=== PATIENT | male | born 1995 | race Caucasian/White ===

== ENCOUNTER 2022-03-16 11:30 | Emergency (ER) | payer OTHER, SELFPAY ==
--- NOTE | 2022-03-16 12:47 | ED_ITS ---
HPI - Syncope General Chief Complaint: Syncope <JAMES Raygoza - Last Filed: 03/16/22 12:53> Stated Complaint: Syncope 03/13 <JAMES Raygoza - Last Filed: 03/16/22 12:53> Time Seen by Provider: 03/16/22 14:04 <JAMES Raygoza - Last Filed: 03/16/22 12:53> Source: patient and family <Lily Meeks NP - Last Filed: 03/16/22 15:06> Mode of arrival: ambulatory <Lily Meeks NP - Last Filed: 03/16/22 15:06> Limitations: no limitations <Lily Meeks NP - Last Filed: 03/16/22 15:06> History of Present Illness HPI narrative: 26-year-old male with no significant past medical history presents to the emergency department after having a witnessed syncopal episode 03/13/22 after using marijuana and alcohol. Patient states prior to losing consciousness, it he felt warm and sweaty, nauseous, with cloudy and starry vision and the feeling of his vision closing in. His girlfriend states he hit the side of his head when he passed out. She states he lost consciousness for less than 30 seconds, and opened his eyes as soon as he hit the floor. She reports that he appeared confused for several minutes afterwards. Patient states he had a similar episode in November, while on vacation in [place], however; his girlfriend states h e was unconscious for 1-2 minutes and woke with severe confusion that lasted minutes. He states he has a history of pericardial inflammation due to ' increased wbc's the attack my heart when sick'. He denies any similar symptoms since. He denies any recent illness, known sick contacts, fever, chills, nausea, diarrhea, headaches, or vision changes. <Lily Meeks NP - Last Filed: 03/16/22 15:06> MD complaint: loss of consciousness (03/13/22) <Lily Meeks NP - Last Filed: 03/16/22 15:06> Onset (ago): day(s) (3 days ago) <Lily Meeks NP - Last Filed: 03/16/22 15:06> Prodromal symptoms: vision changes, diaphoresis and nausea/vomiting <Lily Meeks NP - Last Filed: 03/16/22 15:06> Witnessed: Yes - by Bystander <Lily Meeks NP - Last Filed: 03/16/22 15:06> Context: standing up <Lily Meeks DEVELOPMENT TECHNICAL LEAD - Last Filed: 03/16/22 15:06> Injuries sustained associated with event: none <Lily Meeks DEVELOPMENT TECHNICAL LEAD - Last Filed: 03/16/22 15:06> Current symptoms: none <Lily Meeks NP - Last Filed: 03/16/22 15:06> Treatments prior to arrival: none <Lily Mekes NP - Last Filed: 03/16/22 15:06> Related Data Allergies/Adverse Reactions: Allergies Allergy/AdvReac Type Severity Reaction Status Date / Time No Known Allergies Allergy Verified 03/16/22 12:47 <JAMES Raygoza - Last Filed: 03/16/22 12:53> Review of Systems Review of Systems: Yes all other systems are reviewed and are negative <Lily Meeks NP - Last Filed: 03/16/22 15:06> Constitutional: Constitutional: Reports no additional constitutional complaints, Denies chills, Denies fever(s) and Denies headache(s) <Lily Meeks DEVELOPMENT TECHNICAL LEAD - Last Filed: 03/16/22 15:06> Eyes: Eyes: Reports no additional eye complaints and Denies change in vision <Lily Meeks DEVELOPMENT TECHNICAL LEAD - Last Filed: 03/16/22 15:06> ENT: Reports system reviewed and no additional complaints, except as documented, Reports Normal hearing present, Denies headache(s) and Denies disequilibrium <Lily Meeks DEVELOPMENT TECHNICAL LEAD - Last Filed: 03/16/22 15:06> Cardiovascular: Cardiovascular: Reports no additional cardiovascular complaints, Denies chest pain and Denies dyspnea <Lily Meeks DEVELOPMENT TECHNICAL LEAD - Last Filed: 03/16/22 15:06> Respiratory: Respiratory: Reports no additional respiratory complaints, Denies chest congestion, Denies cough, Denies pain on inspiration and Denies dyspnea <Lily Pluciennik, DEVELOPMENT TECHNICAL LEAD - Last Filed: 03/16/22 15:06> Gastrointestinal: Gastrointestinal: Reports no additional gastrointestinal complaints, Denies abdominal pain, Denies change in bowel habits, Denies constipation, Denies diarrhea, Denies nausea and Denies vomiting <Lily Pluciennik, DEVELOPMENT TECHNICAL LEAD - Last Filed: 03/16/22 15:06> Genitourinary: Genitourinary: Reports no additional male genitourinary complaints and Denies urinary incontinence <Lily Pluciennik, DEVELOPMENT TECHNICAL LEAD - Last Filed: 03/16/22 15:06> Musculoskeletal: Musculoskeletal: Reports no additional musculoskeletal complaints, Denies numbness and Denies tingling <Lily Pluciennik, DEVELOPMENT TECHNICAL LEAD - Last Filed: 03/16/22 15:06> Integumentary/Breasts: Skin/Breast: Reports system reviewed and no additional complaints, except as docu <Lily Pluciennik, DEVELOPMENT TECHNICAL LEAD - Last Filed: 03/16/22 15:06> Neurologic: Reports system reviewed and no additional complaints, except as documented, Reports Normal hearing present, Denies headache(s), Denies numbness, Denies tingling and Denies disequilibrium <Lily Pluciennik, DEVELOPMENT TECHNICAL LEAD - Last Filed: 03/16/22 15:06> Psychiatric: Psychiatric: Reports no additional psychiatric complaints, Reports anxiety (history of) and Denies depression <Lily Pluciennik, DEVELOPMENT TECHNICAL LEAD - Last Filed: 03/16/22 15:06> Endocrine: Endocrine: Reports no additional endocrine complaints, Denies polyphagia, Denies polydipsia and Denies polyuria <Lily Pluciennik, DEVELOPMENT TECHNICAL LEAD - Last Filed: 03/16/22 15:06> Hematologic/Lymphatic: Hematologic/Lymphatic: Reports no additional hematologic/lymphatic complaints, Denies easy bleeding, Denies easy bruising and Denies lymphadenopathy <Lily Pluciennik, DEVELOPMENT TECHNICAL LEAD - Last Filed: 03/16/22 15:06> Allergic/Immunologic: Allergic/Immunologic: Reports no additional allergic/immunologic complaints <Lily Pluciennik, DEVELOPMENT TECHNICAL LEAD - Last Filed: 03/16/22 15:06> PMFSH Past Medical History Attestation statement: The following information was validated with the patient. <Lily Pluciennik, DEVELOPMENT TECHNICAL LEAD - Last Filed: 03/16/22 15:06> Source: old records reviewed <Lily Meeks NP - Last Filed: 03/16/22 15:06> Social History Social History: Social History Advance Directives: No Advance Directives Information Provided: Yes <JAMES Raygoza - Last Filed: 03/16/22 12:53> Physical Exam Vital Signs: Vital Signs: Last Vital Signs Temp 97 F 03/16/22 12:48 Pulse 76 03/16/22 12:48 Resp 16 03/16/22 12:48 BP 142/91 H 03/16/22 12:48 Pulse Ox 100 03/16/22 12:48 O2 Del Method 03/16/22 12:48 BMI result Body Mass Index 34.2 <JAMES Raygoza - Last Filed: 03/16/22 12:53> Vital Signs: Last Vital Signs Temp 97 F 03/16/22 12:48 Pulse 76 03/16/22 12:48 Resp 16 03/16/22 12:48 BP 142/91 H 03/16/22 12:48 Pulse Ox 100 03/16/22 12:48 O2 Del Method 03/16/22 12:48 BMI result Body Mass Index 34.2 <Lily Meeks NP - Last Filed: 03/16/22 15:06> Const: General: cooperative, healthy appearing, comfortable, alert and awake <Lily Meeks NP - Last Filed: 03/16/22 15:06> Nutritional Appearance: well nourished <Lily Meeks NP - Last Filed: 03/16/22 15:06> Orientation/consciousness: patient oriented x3 <Lily Meeks NP - Last Filed: 03/16/22 15:06> Limitations: no limitations <Lily Meeks NP - Last Filed: 03/16/22 15:06> HEENT: Head: Yes normal to inspection, Yes normocephalic and Yes atraumatic <Lily Meeks NP - Last Filed: 03/16/22 15:06> Ears: hearing grossly normal bilaterally and external ears normal <Lily Meeks DEVELOPMENT TECHNICAL LEAD - Last Filed: 03/16/22 15:06> General nose exam: Normal external nose present and Normal nares present <Lily Meeks DEVELOPMENT TECHNICAL LEAD - Last Filed: 03/16/22 15:06> Face and sinus: Yes normal facial exam and Yes face symmetric <Lily Meeks DEVELOPMENT TECHNICAL LEAD - Last Filed: 03/16/22 15:06> Mouth: Normal oral and palatal mucosa present <Lily Meeks DEVELOPMENT TECHNICAL LEAD - Last Filed: 03/16/22 15:06> Eyes: General: appearance normal, both eyes and all related structures <Lily Meeks DEVELOPMENT TECHNICAL LEAD - Last Filed: 03/16/22 15:06> Visual Carvalho: normal visual carvalho by confrontation <Lily Meeks DEVELOPMENT TECHNICAL LEAD - Last Filed: 03/16/22 15:06> Alignment and Position: alignment normal <Lily Meeks DEVELOPMENT TECHNICAL LEAD - Last Filed: 03/16/22 15:06> Periorbital: periorbital findings normal <Lily Meeks DEVELOPMENT TECHNICAL LEAD - Last Filed: 03/16/22 15:06> Eyelids: Yes eyelids normal <Lily Meeks DEVELOPMENT TECHNICAL LEAD - Last Filed: 03/16/22 15:06> Conjunctivae: conjunctivae normal <Lily Meeks DEVELOPMENT TECHNICAL LEAD - Last Filed: 03/16/22 15:06> Sclerae: sclerae normal <Lily Meeks DEVELOPMENT TECHNICAL LEAD - Last Filed: 03/16/22 15:06> Pupils: Equal, round and reactive pupils present <Lily Meeks DEVELOPMENT TECHNICAL LEAD - Last Filed: 03/16/22 15:06> EOM: EOMs intact bilaterally <Lily Meeks DEVELOPMENT TECHNICAL LEAD - Last Filed: 03/16/22 15:06> Direct Ophthalmoscopy: normal light reflex <Lily Meeks DEVELOPMENT TECHNICAL LEAD - Last Filed: 03/16/22 15:06> Neck: Neck: Yes normal visual inspection and Yes full ROM <Lily Meeks DEVELOPMENT TECHNICAL LEAD - Last Filed: 03/16/22 15:06> Chest: Chest palpation & inspection: normal inspection of the chest <Lily Meeks, DEVELOPMENT TECHNICAL LEAD - Last Filed: 03/16/22 15:06> Resp: Effort & Inspection: normal respiratory effort and not labored <Lily Meeks, DEVELOPMENT TECHNICAL LEAD - Last Filed: 03/16/22 15:06> Auscultation: clear to auscultation bilaterally, no crackles, no rhonchi and no wheezes <Lily Meeks, DEVELOPMENT TECHNICAL LEAD - Last Filed: 03/16/22 15:06> Cardio: Rate: regular rate <Lily Meeks, DEVELOPMENT TECHNICAL LEAD - Last Filed: 03/16/22 15:06> Rhythm: regular rhythm <Lily Constantino, DEVELOPMENT TECHNICAL LEAD - Last Filed: 03/16/22 15:06> Heart sounds: S1 normal heart sound present and S2 normal heart sound present <Lily Meeks, DEVELOPMENT TECHNICAL LEAD - Last Filed: 03/16/22 15:06> Peripheral pulses: Peripheral pulses 2+ throughout <Lily Meeks, DEVELOPMENT TECHNICAL LEAD - Last Filed: 03/16/22 15:06> GI: Inspection: Yes normal to inspection <Lily Meeks, DEVELOPMENT TECHNICAL LEAD - Last Filed: 03/16/22 15:06> Palpation (GI): Soft to palpation and nontender <Lily Meeks, DEVELOPMENT TECHNICAL LEAD - Last Filed: 03/16/22 15:06> Auscultation: normal bowel sounds <Lily Meeks, DEVELOPMENT TECHNICAL LEAD - Last Filed: 03/16/22 15:06> : General: Yes no CVA tenderness <Lily Meeks, DEVELOPMENT TECHNICAL LEAD - Last Filed: 03/16/22 15:06> Back/Spine/Pelvis: Back: no CVA tenderness <Lily Meeks, DEVELOPMENT TECHNICAL LEAD - Last Filed: 03/16/22 15:06> Cervical Spine: cervical ROM normal <Lily Constantino, DEVELOPMENT TECHNICAL LEAD - Last Filed: 03/16/22 15:06> Thoracic/Lumbar Spine: thoraco-lumbar ROM normal <Lily Meeks, DEVELOPMENT TECHNICAL LEAD - Last Filed: 03/16/22 15:06> Skin: General skin exam: no rashes or lesions noted <Lily Pluciennik, DEVELOPMENT TECHNICAL LEAD - Last Filed: 03/16/22 15:06> Neuro: General: patient oriented x3, gait normal and moves all extremities <Lilydalton Meeks DEVELOPMENT TECHNICAL LEAD - Last Filed: 03/16/22 15:06> Cranial nerves: Yes Equal, round and reactive pupils present, Yes Bilaterally intact EOM present, Yes Normal facial strength present, Yes Midline tongue present, Yes Normal hearing present, Yes Ability to bilaterally rotate head present and Yes Ability to bilaterally elevate shoulders present <Lily hernandez DEVELOPMENT TECHNICAL LEAD - Last Filed: 03/16/22 15:06> Cognition (Neuro): normal cognition <Lilydalton Meeks DEVELOPMENT TECHNICAL LEAD - Last Filed: 03/16/22 15:06> Gait exam (Neuro): Normal gait present <Lily Meeks DEVELOPMENT TECHNICAL LEAD - Last Filed: 03/16/22 15:06> Motor exam (neuro): 5/5 motor strength present throughout <Lily Meeks DEVELOPMENT TECHNICAL LEAD - Last Filed: 03/16/22 15:06> Extrem: General: Yes normal to inspection, Yes full ROM and Yes capillary refill normal <Lily Meeks DEVELOPMENT TECHNICAL LEAD - Last Filed: 03/16/22 15:06> Psych: Appearance: grossly normal and well kempt <Lily Meeks DEVELOPMENT TECHNICAL LEAD - Last Filed: 03/16/22 15:06> Mental Status: mental status grossly normal <Lily Meeks DEVELOPMENT TECHNICAL LEAD - Last Filed: 03/16/22 15:06> Speech and movement: Normal speech and movement present <Lily Meeks DEVELOPMENT TECHNICAL LEAD - Last Filed: 03/16/22 15:06> Affect: normal affect <Lily Meeks DEVELOPMENT TECHNICAL LEAD - Last Filed: 03/16/22 15:06> Attitude: cooperative <Lily Meeks DEVELOPMENT TECHNICAL LEAD - Last Filed: 03/16/22 15:06> Thought process: Normal thought process present <Lily Meeks DEVELOPMENT TECHNICAL LEAD - Last Filed: 03/16/22 15:06> Thought content: Normal thought content present <Lily Meeks DEVELOPMENT TECHNICAL LEAD - Last Filed: 03/16/22 15:06> Insight: Good insight present (Psych) <Lily Meeks NP - Last Filed: 03/16/22 15:06> Judgement: Good judgement present (Psych) <Lily Meeks NP - Last Filed: 03/16/22 15:06> Course Course Course Narrative: 26 yo male presents to the ER for evaluation of syncopal event on 03/13. Substance were involved - weed and alcohol but not enough to make him pass out. History of similar episode in November with post-event confusion. On Wednesday after smoking a joint he had a fuzzy head he stood up and then passed out. He reports a history of something with the lining of my heart. Ambulatory and appears well. Will check basic labs and EKG. <JAMES Raygoza - Last Filed: 03/16/22 12:53> MDM - Syncope MDM Narrative Medical decision making narrative: 26-year-old male presented to the emergency department after a witnessed syncopal episode 3 days ago on 03/13/22. He denies any similar symptoms since. Blood work unremarkable. Urinalysis negative for infection. Toxicology positive for marijuana. Low suspicion for seizure disorder, hypo/hyperglycemia, orthostatic hypotension. Diagnostics and physical exam discussed with patient and girlfriend with no unanswered questions. Educated to return to the emergency department with severe headache, change in vision, syncope, or any other concerning emergency symptoms. Recommended follow-up with primary care provider for further management and treatment. <Lily Meeks NP - Last Filed: 03/16/22 15:06> Lab Data Attestation: I reviewed the patient's lab results. <Lily Meeks NP - Last Filed: 03/16/22 15:06> Result diagrams: : 03/16/22 13:41 03/16/22 13:41 <JAMES Raygoza - Last Filed: 03/16/22 12:53> Labs: Lab Results 03/16/22 03/16/22 03/16/22 Range/Units 13:41 13:41 13:57 WBC 7.6 (4.8-10.8) X10*3/uL RBC 5.36 (4.60-5.80) X10*6/uL Hgb 15.8 (14.0-18.0) g/dl Hct 47.4 (42.0-52.0) % MCV 88.4 (80.0-98.0) fL MCH 29.5 (27.0-33.0) pg MCHC 33.3 (31.0-36.0) g/dl RDW 12.5 (11.0-16.0) % Plt Count 248 (160-400) X10*3/uL MPV 10.2 (9.4-12.4) fL Immature Gran % (Auto) 0.4 (0.0-0.4) % Neut % (Auto) 58.1 (45-73) % Lymph % (Auto) 30.6 (20-40) % Pratt % (Auto) 7.6 (2-11) % Eos % (Auto) 2.6 (0-4) % Baso % (Auto) 0.7 (0-2) % Lymph # (Auto) 2.3 (1.2-4.9) X10*3/uL Pratt # (Auto) 0.6 (0.1-1.2) X10*3/uL Eos # (Auto) 0.2 (0.0-0.4) X10*3/uL Baso # (Auto) 0.1 (0.0-0.2) X10*3/uL Abs Immat Gran (auto) 0.03 (0.00-0.03) X10*3/uL Absolute Neuts (auto) 4.4 (2.0-8.3) x10*3/uL Absolute Nucleated RBC 0.000 (0.0-0.012) X10*3/uL Nucleated RBC % (auto) 0.0 (0.0-0.2) /100WBC Sodium 140 (135-145) mmol/L Potassium 4.6 (3.3-5.1) mmol/L Chloride 105 (96-108) mmol/L Carbon Dioxide 28 (22-29) mmol/L Anion Gap 12 (12-20) BUN 15 (9-16) mg/dL Creatinine 0.81 (0.5-1.4) mg/dL Estim Creat Clear Calc 199.6 Estimated GFR > 60 Random Glucose 92 (60-115) mg/dL Calcium 9.9 (8.4-10.2) mg/dL Magnesium 2.2 (1.6-2.6) mg/dL Total Bilirubin 0.4 (0.0-1.0) mg/dL Direct Bilirubin 0.2 (0.0-0.5) mg/dL AST 16 (5-37) U/L ALT 18 (0-40) U/L Alkaline Phosphatase 81 (39-117) U/L Total Protein 7.7 (6.5-8.0) g/dL Albumin 4.7 (3.5-5.0) g/dL Urine Color Yellow Urine Appearance Clear Urine pH 6.0 (5.0-9.0) Ur Specific [place] 1.020 (1.005-1.025) Urine Protein Negative (Neg-Trace) mg/dL Urine Glucose (UA) Negative (Negative) mg/dL Urine Ketones Negative (Negative) mg/dL Urine Blood Negative (Negative) Urine Nitrite Negative (Negative) Ur Leukocyte Esterase Negative (Negative) Urine Opiates Screen (Not Detect) Urine Fentanyl Screen (Not Detect) Ur Barbiturates Screen (Not Detect) Ur Phencyclidine Scrn (Not Detect) Ur Amphetamines Screen (Not Detect) U Benzodiazepines Scrn (Not Detect) Urine Cocaine Screen (Not Detect) U Marijuana (THC) Screen (Not Detect) 03/16/22 Range/Units 13:57 WBC (4.8-10.8) X10*3/uL RBC (4.60-5.80) X10*6/uL Hgb (14.0-18.0) g/dl Hct (42.0-52.0) % MCV (80.0-98.0) fL MCH (27.0-33.0) pg MCHC (31.0-36.0) g/dl RDW (11.0-16.0) % Plt Count (160-400) X10*3/uL MPV (9.4-12.4) fL Immature Gran % (Auto) (0.0-0.4) % Neut % (Auto) (45-73) % Lymph % (Auto) (20-40) % Pratt % (Auto) (2-11) % Eos % (Auto) (0-4) % Baso % (Auto) (0-2) % Lymph # (Auto) (1.2-4.9) X10*3/uL Pratt # (Auto) (0.1-1.2) X10*3/uL Eos # (Auto) (0.0-0.4) X10*3/uL Baso # (Auto) (0.0-0.2) X10*3/uL Abs Immat Gran (auto) (0.00-0.03) X10*3/uL Absolute Neuts (auto) (2.0-8.3) x10*3/uL Absolute Nucleated RBC (0.0-0.012) X10*3/uL Nucleated RBC % (auto) (0.0-0.2) /100WBC Sodium (135-145) mmol/L Potassium (3.3-5.1) mmol/L Chloride (96-108) mmol/L Carbon Dioxide (22-29) mmol/L Anion Gap (12-20) BUN (9-16) mg/dL Creatinine (0.5-1.4) mg/dL Estim Creat Clear Calc Estimated GFR Random Glucose (60-115) mg/dL Calcium (8.4-10.2) mg/dL Magnesium (1.6-2.6) mg/dL Total Bilirubin (0.0-1.0) mg/dL Direct Bilirubin (0.0-0.5) mg/dL AST (5-37) U/L ALT (0-40) U/L Alkaline Phosphatase (39-117) U/L Total Protein (6.5-8.0) g/dL Albumin (3.5-5.0) g/dL Urine Color Urine Appearance Urine pH (5.0-9.0) Ur Specific [place] (1.005-1.025) Urine Protein (Neg-Trace) mg/dL Urine Glucose (UA) (Negative) mg/dL Urine Ketones (Negative) mg/dL Urine Blood (Negative) Urine Nitrite (Negative) Ur Leukocyte Esterase (Negative) Urine Opiates Screen Not Detected (Not Detect) Urine Fentanyl Screen Not Detected (Not Detect) Ur Barbiturates Screen Not Detected (Not Detect) Ur Phencyclidine Scrn Not Detected (Not Detect) Ur Amphetamines Screen Not Detected (Not Detect) U Benzodiazepines Scrn Not Detected (Not Detect) Urine Cocaine Screen Not Detected (Not Detect) U Marijuana (THC) Screen POSITIVE H (Not Detect) <JAMES Raygoza - Last Filed: 03/16/22 12:53> Lab Results 03/16/22 03/16/22 03/16/22 Range/Units 13:41 13:41 13:57 WBC 7.6 (4.8-10.8) X10*3/uL RBC 5.36 (4.60-5.80) X10*6/uL Hgb 15.8 (14.0-18.0) g/dl Hct 47.4 (42.0-52.0) % MCV 88.4 (80.0-98.0) fL MCH 29.5 (27.0-33.0) pg MCHC 33.3 (31.0-36.0) g/dl RDW 12.5 (11.0-16.0) % Plt Count 248 (160-400) X10*3/uL MPV 10.2 (9.4-12.4) fL Immature Gran % (Auto) 0.4 (0.0-0.4) % Neut % (Auto) 58.1 (45-73) % Lymph % (Auto) 30.6 (20-40) % Pratt % (Auto) 7.6 (2-11) % Eos % (Auto) 2.6 (0-4) % Baso % (Auto) 0.7 (0-2) % Lymph # (Auto) 2.3 (1.2-4.9) X10*3/uL Pratt # (Auto) 0.6 (0.1-1.2) X10*3/uL Eos # (Auto) 0.2 (0.0-0.4) X10*3/uL Baso # (Auto) 0.1 (0.0-0.2) X10*3/uL Abs Immat Gran (auto) 0.03 (0.00-0.03) X10*3/uL Absolute Neuts (auto) 4.4 (2.0-8.3) x10*3/uL Absolute Nucleated RBC 0.000 (0.0-0.012) X10*3/uL Nucleated RBC % (auto) 0.0 (0.0-0.2) /100WBC Sodium 140 (135-145) mmol/L Potassium 4.6 (3.3-5.1) mmol/L Chloride 105 (96-108) mmol/L Carbon Dioxide 28 (22-29) mmol/L Anion Gap 12 (12-20) BUN 15 (9-16) mg/dL Creatinine 0.81 (0.5-1.4) mg/dL Estim Creat Clear Calc 199.6 Estimated GFR > 60 Random Glucose 92 (60-115) mg/dL Calcium 9.9 (8.4-10.2) mg/dL Magnesium 2.2 (1.6-2.6) mg/dL Total Bilirubin 0.4 (0.0-1.0) mg/dL Direct Bilirubin 0.2 (0.0-0.5) mg/dL AST 16 (5-37) U/L ALT 18 (0-40) U/L Alkaline Phosphatase 81 (39-117) U/L Total Protein 7.7 (6.5-8.0) g/dL Albumin 4.7 (3.5-5.0) g/dL Urine Color Yellow Urine Appearance Clear Urine pH 6.0 (5.0-9.0) Ur Specific [place] 1.020 (1.005-1.025) Urine Protein Negative (Neg-Trace) mg/dL Urine Glucose (UA) Negative (Negative) mg/dL Urine Ketones Negative (Negative) mg/dL Urine Blood Negative (Negative) Urine Nitrite Negative (Negative) Ur Leukocyte Esterase Negative (Negative) Urine Opiates Screen (Not Detect) Urine Fentanyl Screen (Not Detect) Ur Barbiturates Screen (Not Detect) Ur Phencyclidine Scrn (Not Detect) Ur Amphetamines Screen (Not Detect) U Benzodiazepines Scrn (Not Detect) Urine Cocaine Screen (Not Detect) U Marijuana (THC) Screen (Not Detect) 03/16/22 Range/Units 13:57 WBC (4.8-10.8) X10*3/uL RBC (4.60-5.80) X10*6/uL Hgb (14.0-18.0) g/dl Hct (42.0-52.0) % MCV (80.0-98.0) fL MCH (27.0-33.0) pg MCHC (31.0-36.0) g/dl RDW (11.0-16.0) % Plt Count (160-400) X10*3/uL MPV (9.4-12.4) fL Immature Gran % (Auto) (0.0-0.4) % Neut % (Auto) (45-73) % Lymph % (Auto) (20-40) % Pratt % (Auto) (2-11) % Eos % (Auto) (0-4) % Baso % (Auto) (0-2) % Lymph # (Auto) (1.2-4.9) X10*3/uL [place] # (Auto) (0.1-1.2) X10*3/uL Eos # (Auto) (0.0-0.4) X10*3/uL Baso # (Auto) (0.0-0.2) X10*3/uL Abs Immat Gran (auto) (0.00-0.03) X10*3/uL Absolute Neuts (auto) (2.0-8.3) x10*3/uL Absolute Nucleated RBC (0.0-0.012) X10*3/uL Nucleated RBC % (auto) (0.0-0.2) /100WBC Sodium (135-145) mmol/L Potassium (3.3-5.1) mmol/L Chloride (96-108) mmol/L Carbon Dioxide (22-29) mmol/L Anion Gap (12-20) BUN (9-16) mg/dL Creatinine (0.5-1.4) mg/dL Estim Creat Clear Calc Estimated GFR Random Glucose (60-115) mg/dL Calcium (8.4-10.2) mg/dL Magnesium (1.6-2.6) mg/dL Total Bilirubin (0.0-1.0) mg/dL Direct Bilirubin (0.0-0.5) mg/dL AST (5-37) U/L ALT (0-40) U/L Alkaline Phosphatase (39-117) U/L Total Protein (6.5-8.0) g/dL Albumin (3.5-5.0) g/dL Urine Color Urine Appearance Urine pH (5.0-9.0) Ur Specific [place] (1.005-1.025) Urine Protein (Neg-Trace) mg/dL Urine Glucose (UA) (Negative) mg/dL Urine Ketones (Negative) mg/dL Urine Blood (Negative) Urine Nitrite (Negative) Ur Leukocyte Esterase (Negative) Urine Opiates Screen Not Detected (Not Detect) Urine Fentanyl Screen Not Detected (Not Detect) Ur Barbiturates Screen Not Detected (Not Detect) Ur Phencyclidine Scrn Not Detected (Not Detect) Ur Amphetamines Screen Not Detected (Not Detect) U Benzodiazepines Scrn Not Detected (Not Detect) Urine Cocaine Screen Not Detected (Not Detect) U Marijuana (THC) Screen POSITIVE H (Not Detect) <Lily Meeks NP - Last Filed: 03/16/22 15:06> Discharge Plan Discharge Clinical Impression: Syncope and collapse <JAMES Raygoza - Last Filed: 03/16/22 12:53> Patient Disposition: Home, Self-Care <JAMES Raygoza - Last Filed: 03/16/22 12:53> Referrals: [facility] Family Medicine [Provider Group] [facility] Primary Care, Magdalene [Provider Group] [facility] Primary Care,Randal [Provider Group] <JAMES Raygoza - Last Filed: 03/16/22 12:53> Stand Alone Forms: Work/School Release <JAMES Raygoza - Last Filed: 03/16/22 12:53> Print Language: Thai <JAMES Raygoza - Last Filed: 03/16/22 12:53>
[2022-03-16 12:48] VITALS: BP 142/91; PULSE 76; RESP 16; TEMP 36.1; O2SAT 100; BMI 34.2
[2022-03-16 13:45] LABS: MANUAL DIFF FLAG NO
[2022-03-16 13:50] LABS: Basophils Absolute Auto 0.1 X10*3/uL (0.0-0.2); Basophils Percent Auto 0.7 % (0-2); Eosinophils Absolute Auto 0.2 X10*3/uL (0.0-0.4); Eosinophils Percent Auto 2.6 % (0-4); Hematocrit 47.4 % (42.0-52.0); Hemoglobin 15.8 g/dl (14.0-18.0); Imm Gran Abs Auto 0.03 X10*3/uL (0.00-0.03); Imm Gran Pct Auto 0.4 % (0.0-0.4); Lymphocytes Absolute Auto 2.3 X10*3/uL (1.2-4.9); Lymphocytes Percent Auto 30.6 % (20-40); Mean Corpuscular HGB Conc 33.3 g/dl (31.0-36.0); Mean Corpuscular Hemoglobin 29.5 pg (27.0-33.0); Mean Corpuscular Volume 88.4 fL (80.0-98.0); Mean Platelet Volume 10.2 fL (9.4-12.4); Monocytes Absolute Auto 0.6 X10*3/uL (0.1-1.2); Monocytes Percent Auto 7.6 % (2-11); Neutrophils Absolute Auto 4.4 x10*3/uL (2.0-8.3); Neutrophils Percent Auto 58.1 % (45-73); Platelet Count 248 X10*3/uL (160-400); Red Blood Count 5.36 X10*6/uL (4.60-5.80); Red Cell Distribution Width 12.5 % (11.0-16.0); White Blood Count 7.6 X10*3/uL (4.8-10.8)
[2022-03-16 14:06] LABS: Appearance Urine Clear; Color Urine Yellow; Glucose Urine UA Negative (Negative); Leukocyte Esterase Urine Negative (Negative); Nitrite Urine Negative (Negative); Urine Blood Negative (Negative); Urine Ketones Negative (Negative); Urine Protein Negative (Neg-Trace)
[2022-03-16 14:07] LABS: Alanine Aminotransferase 18 U/L (0-40); Albumin Level 4.7 g/dL (3.5-5.0); Alkaline Phosphatase 81 U/L (39-117); Anion Gap 12 (12-20); Aspartate Amino Transferase 16 U/L (5-37); Bilirubin Direct 0.2 mg/dL (0.0-0.5); Bilirubin Total 0.4 mg/dL (0.0-1.0); Blood Urea Nitrogen 15 mg/dL (9-16); Calcium 9.9 mg/dL (8.4-10.2); Carbon Dioxide 28 mmol/L (22-29); Chloride 105 mmol/L (96-108); Creatinine Clr Calc Pharmacy 199.6; Estimated Glomerular Filt Rate > 60; Glucose Random 92 mg/dL (60-115); Magnesium 2.2 mg/dL (1.6-2.6); Potassium 4.6 mmol/L (3.3-5.1); Sodium 140 mmol/L (135-145); Total Protein 7.7 g/dL (6.5-8.0)
[2022-03-16 14:13] LABS: Amphetamine Screen Urine Not Detected (Not Detect); Barbiturates, Urine Not Detected (Not Detect); Benzodiazepines Screen Urine Not Detected (Not Detect); Cannabinoid Screen Urine POSITIVE (Not Detect); Cocaine Screen Urine Not Detected (Not Detect); Fentanyl, urine Not Detected (Not Detect); Opiate Screen Urine Not Detected (Not Detect); Phencyclidine Screen Urine Not Detected (Not Detect)
== END 2022-03-16 14:56 | disposition home or self-care (01) ==
PROVIDERS: Physician Assistant; Emergency Provider Emergency Medicine
DX: R55 Syncope and collapse (principal); F12.90 Cannabis use, unspecified, uncomplicated
CPT/HCPCS: 36415; 80048; 80076; 80307; 81003; 83735; 85025; 99282; 99283

== ENCOUNTER 2022-06-24 12:22 | Outpatient (REF) | payer OTHER, SELFPAY ==
[2022-06-24 14:50] LABS: Hematocrit 43.4 % (42.0-52.0); Hemoglobin 14.7 g/dl (14.0-18.0); Mean Corpuscular HGB Conc 33.9 g/dl (31.0-36.0); Mean Corpuscular Hemoglobin 29.6 pg (27.0-33.0); Mean Corpuscular Volume 87.5 fL (80.0-98.0); Mean Platelet Volume 10.5 fL (9.4-12.4); Platelet Count 238 X10*3/uL (160-400); Red Blood Count 4.96 X10*6/uL (4.60-5.80); Red Cell Distribution Width 13.1 % (11.0-16.0); White Blood Count 6.4 X10*3/uL (4.8-10.8)
[2022-06-24 15:13] LABS: Alanine Aminotransferase 16 U/L (0-40); Albumin Level 4.3 g/dL (3.5-5.0); Alkaline Phosphatase 76 U/L (39-117); Anion Gap 14 (12-20); Aspartate Amino Transferase 18 U/L (5-37); Bilirubin Total 0.8 mg/dL (0.0-1.0); Blood Urea Nitrogen 15 mg/dL (9-16); Calcium 9.2 mg/dL (8.4-10.2); Carbon Dioxide 24 mmol/L (22-29); Chloride 107 mmol/L (96-108); Cholesterol 202 mg/dL; Estimated Glomerular Filt Rate > 60; Glucose Fasting 85 mg/dL (60-99); HDL Cholesterol 37 mg/dL; LDL Cholesterol Calculated 148 mg/dl; Potassium 4.2 mmol/L (3.3-5.1); Sodium 141 mmol/L (135-145); Total Protein 6.8 g/dL (6.5-8.0); Triglycerides 86 mg/dL
[2022-06-24 15:20] LABS: TSH reflex Free T4 1.01 uIU/mL (0.32-4.0); Vitamin D 25-OH Total 13.6 ng/mL (>30)
== END 2022-06-24 12:23 | disposition home or self-care (01) ==
LOC: HO.WFDLDS 12:22
PROVIDERS: Visit Provider Nurse Practitioner Family
DX: Z00.00 Encounter for general adult medical examination without abnormal findings (principal)
CPT/HCPCS: 36415; 80053; 80061; 82306; 84443; 85027

== ENCOUNTER 2022-10-28 12:19 | Outpatient (AMB) | payer OTHER, SELFPAY ==
[2022-10-28 12:29] VITALS: BP 128/70; PULSE 95; RESP 12; TEMP 36.8; O2SAT 99; BMI 37.7
--- NOTE | 2022-10-28 12:29 | A.OFFPC_ITS ---
Vital Signs 10/28/22 12:29 Height 6 ft 3 in Weight 301 lb 6 oz BMI 37.7 BP 128/70 Blood Pressure Location Rt brachial Position Sitting Respiration 12 Pulse 95 Pulse Source Pulse Oximeter Temp 98.2 F Temp Source Temporal Artery Scan Pulse Oximetry (%) 99 Oxygen Delivery Method Room Air Intake Visit Reasons: 2 mos anxiety, vit D deficiency Intake Note: Patient did not do labs due to his mother wedding. Patient states that his left eye has a chalazion that has been causing discomfort and pain here ther thatv he would removed if possible. Patient also states that he needs a refill on his ProAir HFA inhaler. Airplane Technician Required: No Accompanied by: Self / Same As Patient Allergies Seasonal Allergies Allergy (Intermediate, Verified 10/28/22 12:47) sneezing Medication List - Last Reconciled 10/28/22 by Brittney Grimes CNP albuterol sulfate 90 mcg/actuation (ProAir HFA) 2 puffs inhalation Q6H PRN cholecalciferol (vitamin D3) 25 mcg PO DAILY 90 days Tobacco use date assessed: 06/26/22 Dental Screening Dental Screen Date: 10/28/22 Did you have a dental visit in the last 12 months?: No Did you have a dental problem in the last 6 months where you did not have access to dental care?: No Was dental information given to patient?: Patient has dentist HPI HPI Comments History of Present Illness Details 27-year-old male presents for anxiety and depression follow-up Reports increased anxiety on Hydroxyzine and Omeprazole, therefore, he stopped taking the medications 2 weeks ago He states that he gets very anxious about leaving the house and going outside. Otherwise, his symptoms are well controlled. He requests a referral to a therapist and is willing to try another psychotropic medication. Reports continued SOB, at least every other day. He notes that he feels as though breathing in is restricted. He was seen at [facility] in [place] 2 weeks ago for SOB, was prescribed a medication, but he lost the scrip. He does not recall the name of the medication. He states that he has stopped vaping a month and half ago. He uses the albuterol inhaler as needed. He states he was diagnosed with asthma when he was 19 years old. Reports discomfort to lump on his left eyelid which has been present for over 3 months. She also has a smaller lump to his right eyelid. No visual disturbances. He requests a referral to have the lump removed. He has a positive response to the PHQ-9 question regarding thoughts that you would be better off or hurting yourself in some way. He notes that I'm sick of feeling like i can't breathe, i don't want to go anywhere. He denies SI/HI, plans of committing suicide and contracts for safety. FORMERLY [facility], [facility]1983 Medical History Asthma Surgical History (Updated 10/28/22 @ 12:39 by Viola Napoles MA) No pertinent past surgical history Family History Mother Asthma Hypertension Social History Housing: House Patient Tobacco Use Status: Never used Tobacco e-Cigarette/Vaping Use: Former Use service: No Current occupational status: unemployed Cognitive needs: No Hearing needs: No Vision needs: Yes (Reoccuring styes) Questionnaire PHQ-9 Over the last 2 weeks, how often have you been bothered by any of the following problems? 1. Little interest or pleasure in doing things: nearly every day 2. Feeling down, depressed, or hopeless: several days 3. Trouble falling or staying asleep, or sleeping too much: not at all 4. Feeling tired or having little energy: more than half the days 5. Poor appetite or overeating: more than half the days 6. Feeling bad about yourself - or that you are a failure or have let yourself or your family down: not at all 7. Trouble concentrating on things, such as reading the newspaper or watching television: not at all 8. Moving or speaking so slowly that other people could have noticed. Or the opposite - being so fidgety or restless that you have been moving around a lot more than usual: not at all 9. Thoughts that you would be better off or of hurting yourself in some way: several days Total score: 9 Depression Screening Interpretation: Positive Depression Screening Follow-up: Existing condition, New Medication prescribed and Community Mental Health Worker F/U Source: Developed by Drs. Bud Franks, Kylie Vivar, Bradley Catalan and colleagues, with an educational nehal from [employer]. Thrive Questionnaire Date Thrive assessed: 05/19/22 NORMA-7 AMB Questionnaire NORMA-7 Date NORMA - 7 assessed: 10/28/22 Feeling nervous, anxious, or on edge: 2 = More than half the days Not being able to stop or control worryin = Several days Worrying too much about different things: 2 = More than half the days Trouble relaxin = Not at all Being so restless that it is hard to sit still: 0 = Not at all Becoming easily annoyed or irritable: 1 = Several days Feeling afraid as if something awful might happen: 2 = More than half the days Total NORMA-7 score (0-4 normal; 5-9 mild; 10-14 moderate; 15-21 severe): 8 Source: Developed by Drs. Bud Franks, Kylie Vivar, Bradley Catalan and colleagues, with an educational nehal from [employer]. ACT Questionnaire In the past 4 weeks, how much of the time did your asthma keep you from getting as much done at work, school or at home?: A little of the time During the past 4 weeks, how often have you had shortness of breath?: Once a day During the past 4 weeks, how often did your asthma symptoms wake you up at night or earlier than usual in the morning?: Not at all During the past 4 weeks, how often have you had to use your rescue inhaler or nebulizer medication?: 2-3 times a week How would you rate your asthma control during the past 4 weeks?: Well controlled Score: 18 Review of Systems Const Details: Const Denies chills, Denies fatigue, Denies fever(s), Denies headache(s) and Denies weakness ENT Reports lumps to upper eyelids, Denies change in vision, Denies dizziness, Denies headache(s), Denies hearing loss, Denies nasal congestion, Denies sinus pain, Denies sinus pressure and Denies sore throat Resp Denies cough, Denies dyspnea, Denies wheezing and Denies other (shortness of breath) Cardio Denies chest pain, Denies lightheadedness, Denies dyspnea and Denies other (palpitations) Neuro Denies dizziness, Denies headache(s), Denies numbness, Denies tingling and Denies weakness Psych Reports anxiety, Reports depression, Denies memory?loss Endo Denies cold intolerance, Denies fatigue, Denies heat intolerance, Denies polydipsia and Denies polyuria Aller/Immun Denies wheezing Physical exam (Primary Care) Vital Signs: Last Vital Signs Temp 98.2 F 10/28/22 12:29 Pulse 95 10/28/22 12:29 Resp 12 10/28/22 12:29 BP 128/70 10/28/22 12:29 Pulse Ox 99 10/28/22 12:29 Oxygen Delivery Method Room Air 10/28/22 12:29 BMI result Body Mass Index 37.7 Tobacco/Smoking Status: Tobacco use Status Tobacco use date assessed 06/26/22 10/28/22 12:42 Patient Tobacco Use Status Never used Tobacco 10/28/22 12:42 e-Cigarette/Vaping Use Former Use 10/28/22 12:42 PHQ-9: PHQ-9 Score PHQ-9: Total score 9 10/28/22 12:53 Depression Screening Interpretation: Positive Depression Screening Follow-up: Existing condition, New Medication prescribed and Community Mental Health Worker F/U Thrive Assessment: Date of Thrive Assessment Date Thrive assessed 05/19/22 10/28/22 12:42 Const Other: Const General: well developed; No acute distress Nutritional Appearance: well nourished Orientation/consciousness: patient oriented x3 HEENT Head: Yes normocephalic and Yes atraumatic Eyes General: appearance normal, both eyes and all related structures except for painless lumps to upper eyelids, left greater than right Pupils: Equal, round and reactive pupils present EOM: EOMs intact bilaterally Resp Effort & Inspection: normal respiratory effort Auscultation: clear to auscultation bilaterally Cardio Rate: regular rate Rhythm: regular rhythm Heart sounds: S1 normal heart sound present, S2 normal heart sound present, no gallops, no murmurs and no rubs Bruits: no abdominal aortic bruits and no carotid bruits Neuro General: patient oriented x3 and gait normal, no focal neuro deficit Cranial nerves: Yes Equal, round and reactive pupils present Psych Appearance: grossly normal Affect: normal affect Attitude: cooperative Thought process: Normal thought process present Assessment and Plan Assessment & Plan (1) Anxiety and depression: Code(s): F41.9 - Anxiety disorder, unspecified; F32.A - Depression, unspecified Plan: Reports increased anxiety on Hydroxyzine and Omeprazole, therefore, he stopped taking the medications 2 weeks ago He states that he gets very anxious about leaving the house and going outside. Otherwise, his symptoms are well controlled. He requests a referral to a therapist and is willing to try another psychotropic medication. PHQ-9 and NORMA-7 scores revealed mild anxiety and depression Sertraline ordered. Take as prescribed Routine exercise encouraged He met with the community navigator who provided resources to help him connect to a therapist Encouraged to get pending blood work done before next visit Follow-up in 1 month or return sooner with worsening signs and symptoms Verbalized understanding and agreed with treatment plan. (2) Asthma: Code(s): J45.909 - Unspecified asthma, uncomplicated Plan: Reports continued SOB, at least every other day. He notes that he feels as though breathing in is restricted. He was seen at [facility] in [place] 2 weeks ago for SOB, was prescribed a medication, but he lost the scrip. He does not recall the name of the medication. He states that he has stopped vaping a month and half ago. He uses the albuterol inhaler as needed. He states he was diagnosed with asthma when he was 19 years old ACT score is 18 and indicates partially controlled asthma His symptoms may be attributed to anxiety Referred to pulmonology to rule out pulmonary etiology Continue to use albuterol inhaler as prescribed Follow-up with worsening or new symptoms Verbalized understanding and agreed with treatment plan. (3) Shortness of breath: Code(s): R06.02 - Shortness of breath Plan: As above (4) Chalazion of both eyes: Code(s): H00.13 - Chalazion right eye, unspecified eyelid; H00.16 - Chalazion left eye, unspecified eyelid Plan: Reports discomfort to lump on his left eyelid which has been present for over 3 months. She also has a smaller lump to his right eyelid. No visual disturbances. Painless lumps to upper eyelid, left greater than right Warm compresses encouraged Ophthalmology referral made Return with visual changes or new or worsening signs and symptoms Verbalized understanding and agreed with treatment plan. Orders: Referrals Pulmonology Referral J45.909 - Unspecified asthma, uncomplicated, R06.02 - Shortness of breath Ophthalmology Referral H00.13 - Chalazion right eye, unspecified eyelid, H00.16 - Chalazion left eye, unspecified eyelid Medications: New sertraline 25 mg PO DAILY 30 days 30 tabs 3RF Coding Level of Care Code Est Pt Level 4 (44068) Diagnoses Anxiety and depression F41.9; F32.A Asthma J45.909 Shortness of breath R06.02 Chalazion of both eyes H00.13; H00.16 Time Spent (min) 35
== END 2022-10-28 13:27 | disposition home or self-care (01) ==
PROVIDERS: Visit Provider Nurse Practitioner Family
DX: F41.9 Anxiety disorder, unspecified (principal); F32.A Depression, unspecified; J45.909 Unspecified asthma, uncomplicated; R06.02 Shortness of breath; H00.13 Chalazion right eye, unspecified eyelid; H00.16 Chalazion left eye, unspecified eyelid
CPT/HCPCS: 99214

== ENCOUNTER 2022-11-06 14:09 | Outpatient (AMB) | payer OTHER, SELFPAY ==
[2022-11-06 14:15] VITALS: BP 122/64; PULSE 76; O2SAT 97; BMI 37.2
--- NOTE | 2022-11-06 14:15 | MHC.OFFVIS ---
Intake Vital Signs 11/06/22 14:15 Height 6 ft 3 in Weight 297 lb 9.985 oz BMI 37.2 BP 122/64 Blood Pressure Location Lt brachial Position Sitting Pulse 76 Pulse Source Pulse Oximeter Pulse Oximetry (%) 97 Oxygen Delivery Method Room Air Intake Visit Reasons: Shortness of breath Central Office Equipment Installer Required: No Senior Product Integrity Engineer: Senior Product Integrity Engineer offered & declined Accompanied by: Self / Same As Patient Allergies Seasonal Allergies Allergy (Intermediate, Verified 11/06/22 14:20) sneezing Medication List - Last Reconciled 11/06/22 by Parul Natarajan LPN albuterol sulfate 90 mcg/actuation (ProAir HFA) 2 puffs inhalation Q6H PRN cholecalciferol (vitamin D3) 25 mcg PO DAILY 90 days sertraline 25 mg PO DAILY 30 days HPI Shortness of breath HPI Details Morgan is a very pleasant 27 year old male with underlying history of asthma and seasonal allergies. He was referred by PCP for pulmonary evaluation. For the past 2-3 months he has noted difficulty taking a deep breath and has had associated chest tightness, dyspnea with or without exertion and occasional dry cough. He denies any wheezing. He has a history of vaping nicotine x 8 months and quit when he started to become symptomatic. His PCP sent in albuterol to use PRN after he was evaluated in the [facility] ED with an asthma exacerbation a few weeks ago. He denies symptomatic relief with albuterol. He also reports nasal congestion related to environmental allergies that has been unchanged with antihistamines. He denies using a nasal spray. He denies any childhood asthma. His mother has asthma, otherwise no family history of lung conditions. [facility] Medical History Asthma Surgical History (Updated 10/28/22 @ 12:39 by Viola Napoles MA) No pertinent past surgical history Family History Mother Asthma Hypertension Social History (Updated 11/06/22 @ 14:22 by Parul Natarajan LPN) Housing: House Patient Tobacco Use Status: Former Tobacco user Tobacco use type: Cigarette Years Smoked: smoked less than a year. e-Cigarette/Vaping Use: Former Use service: No Current occupational status: unemployed Cognitive needs: No Hearing needs: No Vision needs: Yes (Reoccuring styes) Review of Systems Const Denies chills, Denies excessive sweating, Denies fever(s), Denies headache(s) and Denies night sweats Eyes Denies dry eyes, Denies irritation and Denies itchy eyes ENT Reports Normal hearing present, Denies headache(s), Denies post nasal drip and Denies sore throat Card Denies chest pain, Denies chest pain at rest, Denies chest pain with activity, Denies leg edema, Denies orthopnea and Denies paroxysmal nocturnal dyspnea Resp Denies chest congestion, Denies excessive phlegm production, Denies pain on inspiration, Denies pain with cough, Denies stridor and Denies wheezing Musc Denies myalgias Neuro Reports Normal hearing present and Denies headache(s) Endo Denies excessive sweating Vadim/Lymph Denies lymphadenopathy Aller/Immun Denies itchy eyes, Denies seasonal rhinorrhea and Denies wheezing Physical Exam Vital Signs: Last Vital Signs Pulse 76 11/06/22 14:15 BP 122/64 11/06/22 14:15 Pulse Ox 97 11/06/22 14:15 Oxygen Delivery Method Room Air 11/06/22 14:15 BMI result Body Mass Index 37.2 Const General: cooperative, healthy appearing, comfortable, no acute distress, well developed and alert Nutritional Appearance: obese Orientation/consciousness: patient oriented x3 Limitations: no limitations HEENT Head: Yes normal to inspection, Yes normocephalic and Yes atraumatic Ears: hearing grossly normal bilaterally and external ears normal Eyes General: appearance normal, both eyes and all related structures Eyelids: Yes eyelids normal Sclerae: sclerae normal EOM: EOMs intact bilaterally Neck Neck: Yes normal visual inspection and Yes no lymphadenopathy Lymphatic: no lymphadenopathy noted Chest Chest palpation & inspection: normal inspection of the chest Resp Effort & Inspection: normal respiratory effort, able to speak in complete sentences, no audible wheezes, no cough, no stridor, not tachypneic, no tripod positioning and no use of accessory muscles Auscultation: clear to auscultation bilaterally Cardio Jugular venous distension: no JVD Rate: regular rate Rhythm: regular rhythm Skin Other: warm, dry General skin exam: no rashes or lesions noted Neuro General: patient oriented x3 Cranial nerves: Yes Normal hearing present Cognition (Neuro): normal cognition Gait exam (Neuro): Normal gait present Extrem General: Yes normal to inspection, Yes capillary refill normal, Yes no clubbing, cyanosis or edema and Yes no pedal edema Psych Appearance: grossly normal and well kempt Speech and movement: Normal speech and movement present and Clear speech present Affect: normal affect Attitude: cooperative Thought process: Normal thought process present Thought content: Normal thought content present Insight: Good insight present (Psych) Judgement: Good judgement present (Psych) Assessment & Plan Assessment & Plan (1) Asthma: Code(s): J45.909 - Unspecified asthma, uncomplicated (2) Environmental allergies: Code(s): Z91.09 - Other allergy status, other than to drugs and biological substances (3) History of nicotine vaping: Code(s): Z87.891 - Personal history of nicotine dependence Plan Morgan's symptoms are likely related with asthma with underlying allergic component. Will send for CXR, labs and PFT to thoroughly evaluate. Will empirically treat with ICS/LABA and Flonase. All questions were answered and patient is in agreement of plan. Will follow up to review results and response to inhaler. Orders: Orders Rast Allergen Today J45.909 - Unspecified asthma, uncomplicated, Z91.09 - Other allergy status, other than to drugs and biological substances Complete Blood Count Auto Diff Today J45.909 - Unspecified asthma, uncomplicated, Z91.09 - Other allergy status, other than to drugs and biological substances Immunoglobulin E Today J45.909 - Unspecified asthma, uncomplicated, Z91.09 - Other allergy status, other than to drugs and biological substances PFT pulmonary function test Today J45.909 - Unspecified asthma, uncomplicated XR chest 2V Today J45.909 - Unspecified asthma, uncomplicated, Z87.891 - Personal history of nicotine dependence Medications: New budesonide-formoterol 80-4.5 mcg/actuation (Symbicort) 2 puffs inhalation Q12H 10.2 grams 3RF fluticasone propionate 50 mcg/actuation (Flonase Allergy Relief) administer into each nostril 1 spray intranasal BID 16 grams 3RF Coding Level of Care Code New Pt Level 4 (61962) Diagnoses Asthma J45.909 Environmental allergies Z91.09 History of nicotine vaping Z87.891
== END 2022-11-06 14:44 | disposition home or self-care (01) ==
PROVIDERS: PCP Nurse Practitioner Family; Referring Provider Nurse Practitioner Family; Visit Provider Nurse Practitioner Family
DX: J45.909 Unspecified asthma, uncomplicated (principal); Z91.09 Other allergy status, other than to drugs and biological substances; Z87.891 Personal history of nicotine dependence
CPT/HCPCS: 99204

== ENCOUNTER → 2022-11-06 14:09 | Outpatient (BNVA) | payer OTHER, SELFPAY | PROVIDERS: PCP Nurse Practitioner Family; Visit Provider Nurse Practitioner Family | DX: J45.909 Unspecified asthma, uncomplicated (principal); Z91.09 Other allergy status, other than to drugs and biological substances; Z87.891 Personal history of nicotine dependence | CPT/HCPCS: 99202 ==

== ENCOUNTER 2022-11-30 13:27 | Outpatient (REF) | payer OTHER, SELFPAY ==
--- NOTE | 2022-11-30 14:12 | PFT_ITS ---
Forced vital capacity 98%, FEV1 of 107%, FEV1/FVC ratio is 89, MVV 31%, most likely due to poor effort. Post bronchodilator therapy, there is no significant change. Total lung capacity 82%. Residual volume 31%. Diffusion capacity 97%. CONCLUSION: Normal pulmonary function test. No evidence of obstructive or restrictive pulmonary disorder. Marked decrease in the MVV and also in residual volume are most likely due to technical reason. MD BRAD Egan/CAT / [id number]
== END 2022-11-30 13:28 | disposition home or self-care (01) ==
LOC: HO.RESP 13:27
PROVIDERS: PCP Nurse Practitioner Family; Visit Provider Nurse Practitioner Family
DX: J45.909 Unspecified asthma, uncomplicated (principal)
CPT/HCPCS: 94010; 94727; 94729

== ENCOUNTER → 2022-11-30 14:12 | Outpatient (BNV) | payer OTHER, SELFPAY | PROVIDERS: PCP Nurse Practitioner Family; Visit Provider Internal Medicine | DX: J45.909 Unspecified asthma, uncomplicated (principal) | CPT/HCPCS: 94060; 94727; 94729 ==

== ENCOUNTER 2023-01-01 | Outpatient (REF) | payer OTHER, SELFPAY | END 2023-01-01 00:01 | disposition home or self-care (01) | LOC: CF | PROVIDERS: Visit Provider Nurse Practitioner Family | DX: J45.909 Unspecified asthma, uncomplicated (principal); Z91.09 Other allergy status, other than to drugs and biological substances; Z79.899 Other long term (current) drug therapy | CPT/HCPCS: 99212 ==

== ENCOUNTER 2023-01-01 13:48 | Outpatient (AMB) | payer OTHER, SELFPAY ==
--- NOTE | 2023-01-01 14:26 | MHC.OFFVIS ---
Intake Vital Signs 01/01/23 14:27 Height 6 ft 3 in Weight 304 lb BMI 38.0 BP 130/72 Blood Pressure Location Lt brachial Position Sitting Pulse 76 Pulse Source Pulse Oximeter Pulse Oximetry (%) 98 Oxygen Delivery Method Room Air Intake Visit Reasons: f/u after testing Physician Office Rep Required: No Health Promotion Coordinator: Health Promotion Coordinator offered & declined Accompanied by: Self / Same As Patient Allergies Seasonal Allergies Allergy (Intermediate, Verified 01/01/23 14:31) sneezing Medication List - Last Reconciled 01/01/23 by Parul Natarajan LPN albuterol sulfate 90 mcg/actuation (ProAir HFA) 2 puffs inhalation Q6H PRN budesonide-formoterol 80-4.5 mcg/actuation (Symbicort) 2 puffs inhalation Q12H cholecalciferol (vitamin D3) 25 mcg PO DAILY 90 days fluticasone propionate 50 mcg/actuation (Flonase Allergy Relief) 1 spray intranasal BID sertraline 25 mg PO DAILY 30 days HPI f/u after testing HPI Details Morgan is a very pleasant 27 year old male with underlying history of asthma and seasonal allergies. At the last visit he reported difficulty taking a deep breath as well as chest tightness, dyspnea with or without exertion and occasional dry cough. He was then started on symbicort and flonase, which he reports significant improvements in symptoms and has been using his albuterol infrequently. Today he presents to review PFT. [facility] Medical History Asthma Surgical History (Updated 10/28/22 @ 12:39 by Viola Napoles MA) No pertinent past surgical history Family History Mother Asthma Hypertension Social History (Updated 01/01/23 @ 14:32 by Parul Natarajan LPN) Housing: House Patient Tobacco Use Status: Former Tobacco user Tobacco use type: Cigarette Years Smoked: smoked less than a year. e-Cigarette/Vaping Use: Former Use service: No Current occupational status: unemployed Cognitive needs: No Hearing needs: No Vision needs: Yes (Reoccuring styes) Review of Systems Const Denies chills, Denies excessive sweating, Denies fever(s), Denies headache(s) and Denies night sweats Eyes Denies dry eyes, Denies irritation and Denies itchy eyes ENT Reports Normal hearing present, Denies headache(s), Denies post nasal drip and Denies sore throat Card Denies chest pain, Denies chest pain at rest, Denies chest pain with activity, Denies leg edema, Denies orthopnea and Denies paroxysmal nocturnal dyspnea Resp Denies chest congestion, Denies excessive phlegm production, Denies pain on inspiration, Denies pain with cough, Denies stridor and Denies wheezing Musc Denies myalgias Neuro Reports Normal hearing present and Denies headache(s) Endo Denies excessive sweating Vadim/Lymph Denies lymphadenopathy Aller/Immun Denies itchy eyes, Denies seasonal rhinorrhea and Denies wheezing Physical Exam Vital Signs: Last Vital Signs Pulse 76 01/01/23 14:27 BP 130/72 01/01/23 14:27 Pulse Ox 98 01/01/23 14:27 Oxygen Delivery Method Room Air 01/01/23 14:27 BMI result Body Mass Index 38.0 Const General: cooperative, healthy appearing, comfortable, no acute distress, well developed and alert Nutritional Appearance: obese Orientation/consciousness: patient oriented x3 Limitations: no limitations HEENT Head: Yes normal to inspection, Yes normocephalic and Yes atraumatic Ears: hearing grossly normal bilaterally and external ears normal Eyes General: appearance normal, both eyes and all related structures Eyelids: Yes eyelids normal Sclerae: sclerae normal EOM: EOMs intact bilaterally Neck Neck: Yes normal visual inspection and Yes no lymphadenopathy Lymphatic: no lymphadenopathy noted Chest Chest palpation & inspection: normal inspection of the chest Resp Effort & Inspection: normal respiratory effort, able to speak in complete sentences, no audible wheezes, no cough, no stridor, not tachypneic, no tripod positioning and no use of accessory muscles Auscultation: clear to auscultation bilaterally Cardio Jugular venous distension: no JVD Rate: regular rate Rhythm: regular rhythm Skin Other: warm, dry General skin exam: no rashes or lesions noted Neuro General: patient oriented x3 Cranial nerves: Yes Normal hearing present Cognition (Neuro): normal cognition Gait exam (Neuro): Normal gait present Extrem General: Yes normal to inspection, Yes capillary refill normal, Yes no clubbing, cyanosis or edema and Yes no pedal edema Psych Appearance: grossly normal and well kempt Speech and movement: Normal speech and movement present and Clear speech present Affect: normal affect Attitude: cooperative Thought process: Normal thought process present Thought content: Normal thought content present Insight: Good insight present (Psych) Judgement: Good judgement present (Psych) Results Reviewed Results Reviewed: Assessment & Plan Assessment & Plan (1) Asthma: Code(s): J45.909 - Unspecified asthma, uncomplicated (2) Environmental allergies: Code(s): Z91.09 - Other allergy status, other than to drugs and biological substances Plan Reviewed PFT results which did not reveal an obstructive or restrictive defect and minimal response to bronchodilation. Marked decrease in the MVV and residual volume are most likely due to a technical reason. Discussed a methacholine challenge but since symptoms are well controlled will hold off for now and continue current regimen. Aware there are orders for bloodwork and CXR entered from prior visit. All questions were answered and patient is in agreement of plan. Will follow up in 6 months or sooner if needed. Coding Level of Care Code Est Pt Level 4 (70201) Diagnoses Asthma J45.909 Environmental allergies Z91.09
[2023-01-01 14:27] VITALS: BP 130/72; PULSE 76; O2SAT 98; BMI 38.0
== END 2023-01-01 14:47 | disposition home or self-care (01) ==
LOC: HO.HPSW 13:48
PROVIDERS: PCP Nurse Practitioner Family; Visit Provider Nurse Practitioner Family
DX: J45.909 Unspecified asthma, uncomplicated (principal); Z91.09 Other allergy status, other than to drugs and biological substances
CPT/HCPCS: 99212; 99214

== ENCOUNTER 2023-04-19 09:34 | Emergency (ER) | payer OTHER, SELFPAY ==
[2023-04-19 09:41] VITALS: BP 141/88; PULSE 85; RESP 20; TEMP 36.4; O2SAT 98; BMI 39.7
--- NOTE | 2023-04-19 10:19 | ED_ITS ---
HPI - General Adult General Chief complaint: Skin/Abscess/Foreign Body Stated complaint: Emelina servin is doing something weird Time Seen by Provider: 04/19/23 10:19 Source: patient Mode of arrival: ambulatory Limitations: no limitations History of Present Illness HPI narrative: Patient is a 27-year-old male presenting to the emergency department with complaint of purulent drainage from umbilicus for several days. States that he can see a small red bump inside the umbilicus. Reports that he has been using topical treatment with little relief. Also reports fevers at night on 04/16 and 04/17, with associated headache, wheezing and fatigue, no fever since. Denies cough, sore throat, abdominal pain, nausea, vomiting. MD complaint: Umbilical drainage Onset (ago): day(s) Location: abdomen Severity: moderate Quality: burning Pain Consistency: intermittent Exacerbating factors: other (Palpation) Associated symptoms: fever/chills Treatments prior to arrival: other (topical treatment) Related Data Home Medications Medication Instructions Recorded Confirmed albuterol sulfate 90 mcg/actuation 2 puff inhalation Q6H PRN 09/30/22 01/01/23 aerosol inhaler (ProAir HFA) Previous Rx's Medication Instructions Recorded cholecalciferol (vitamin D3) 25 25 mcg PO DAILY 90 days #90 tabs 06/24/22 mcg (1,000 unit) tablet sertraline 25 mg tablet 25 mg PO DAILY 30 days #30 tabs 10/28/22 budesonide-formoterol HFA 80 2 puff inhalation Q12H #10.2 grams 11/06/22 mcg-4.5 mcg/actuation aerosol inhaler (Symbicort) fluticasone propionate 50 1 spray intranasal BID #16 grams 11/06/22 mcg/actuation nasal spray,suspension (Flonase Allergy Relief) mupirocin 2 % topical ointment 1 appl topical TID 10 days #15 04/19/23 grams Allergies Allergy/AdvReac Type Severity Reaction Status Date / Time Seasonal Allergies Allergy Intermediate sneezing Verified 04/19/23 09:44 Review of Systems Review of Systems: As per HPI. Yes all other systems are reviewed and are negative Constitutional: Constitutional: Reports as per HPI PMF Past Medical History Medical History Asthma Surgical History (Updated 10/28/22 @ 12:39 by Viola Napoles MA) No pertinent past surgical history Family History Family History Mother Asthma Hypertension Social History Social History (Updated 01/01/23 @ 14:32 by Parul Natarajan LPN) Housing: House Patient Tobacco Use Status: Former Tobacco user Tobacco use type: Cigarette Years Smoked: smoked less than a year. e-Cigarette/Vaping Use: Former Use Advance Directives: No Advance Directives Information Provided: No service: No Current occupational status: unemployed Cognitive needs: No Hearing needs: No Vision needs: Yes (Reoccuring styes) Physical Exam ED Vital Signs: Vital Signs - 24 hr 04/19/23 09:41 Temperature 97.6 F Pulse Rate 85 Respiratory Rate 20 Blood Pressure 141/88 H Pulse Oximetry 98 Oxygen Delivery Method Room Air BMI result Body Mass Index 39.7 Vital signs have been reviewed and appear to be correct. Blood pressure elevated. Heart rate normal. Respiratory rate normal. Temperature normal. Oxygen saturation normal. Const General: cooperative, healthy appearing and no acute distress Orientation/consciousness: oriented to person, oriented to place, oriented to time and patient oriented x3 Limitations: no limitations HENMT Head: Yes normocephalic and Yes atraumatic Ears: external ears normal General nose exam: Normal external nose present Face and sinus: Yes face symmetric Mouth: oropharynx normal and moist mucous membranes Throat: Yes uvula midline Eyes Pupils: Equal, round and reactive pupils present Neck Neck: Yes normal visual inspection and Yes supple Resp Effort & Inspection: normal respiratory effort and able to speak in complete sentences Auscultation: clear to auscultation bilaterally Cardio Rate: regular rate Rhythm: regular rhythm Heart sounds: S1 normal heart sound present and S2 normal heart sound present GI Other: purulent drainage from umbilicus with 5mm erythematous mass visible, no surrou nding erythema or warmth Palpation (GI): Soft to palpation, nontender and no masses Auscultation: normoactive bowel sounds General: Yes no CVA tenderness Back/Spine/Pelvis Back: no CVA tenderness Skin General skin exam: elasticity normal and turgor normal Neuro General: oriented to person, oriented to place, oriented to time, patient orien eric x3, moves all extremities, no focal motor deficits and CN's II-XI intact bilaterally Cranial nerves: Yes Equal, round and reactive pupils present Cognition (Neuro): normal cognition Extrem General: Yes full ROM, Yes no pedal edema and Yes no calf tenderness Psych Mental Status: mental status grossly normal Affect: normal affect Thought process: Normal thought process present Medical Decision Making Medical Decision Making [facility] Narrative: Patient is a 27-year-old male presenting to the emergency department with complaint of purulent drainage from umbilicus for several days. On exam patient is awake, A+Ox3, VS WNL, afebrile, normal neurological exam without focal deficits, physical exam findings as above. Given reported symptoms and physical exam findings, initial differential includes umbilical infection, viral illness. Do not suspect abscess. Will obtain culture of drainage, treat with mupirocin, swab for flu and Covid. Flu and Covid swabs negative, patient is currently afebrile, normotensive and not tachycardic. Do not suspect sepsis. Discussed with patient that he will be contacted regarding positive culture results. Will treat with mupirocin and instructed patient to follow up with PCP. Will refer to surgery for further evaluation of umbilical mass which is likely a granuloma. Return precautions discussed. Patient verbalized understanding of and agreement with plan. Differential Diagnosis Differential Diagnoses: The differential diagnosis associated with the presentation includes As per [facility]. Lab Data [facility] Lab Attestation statement: I reviewed the patient's lab results. As per [facility]. Labs: Lab Results 04/19/23 Range/Units 10:47 COVID-19 (MATTHEW) Negative (Negative) COVID-19 Clin Com See Note Influenza Type A (YOLIS) Negative (Negative) Influenza Type B (YOLIS) Negative (Negative) Influenza A & B Note See Note External Record Review External record reviewed: Inpatient record, Office record and Outpatient record Prescription Management I considered prescription management with: Antibiotic Discharge Plan Discharge Clinical Impression: Infected umbilical granuloma Patient Disposition: Home, Self-Care Instructions: Mupirocin (On the skin) Additional Instructions: You were evaluated in the emergency department today for drainage from your umbilicus (belly button). You are being treated with an antibiotic ointment, please use this as prescribed. Follow-up with your primary care provider this week. You are being referred to General surgery for further evaluation and management of your symptoms. Return to the emergency department if you develop fever 100.4? F or greater, increasing thick yellow drainage, new redness, swelling, worsening pain or any other concerning symptoms. Prescriptions: New mupirocin 2 % ointment 1 appl topical TID 10 Days Qty: 15 0RF No Action cholecalciferol (vitamin D3) 25 mcg (1,000 unit) tablet 25 mcg PO DAILY 90 Days Qty: 90 4RF sertraline 25 mg tablet 25 mg PO DAILY 30 Days Qty: 30 3RF albuterol sulfate [ProAir HFA] 90 mcg/actuation HFA aerosol inhaler 2 puff inhalation Q6H PRN budesonide-formoterol [Symbicort] 80-4.5 mcg/actuation HFA aerosol inhaler 2 puff inhalation Q12H Qty: 10.2 3RF fluticasone propionate [Flonase Allergy Relief] 50 mcg/actuation spray,suspension 1 spray intranasal BID Qty: 16 3RF Rx Instructions: administer into each nostril Referrals: [facility] [place] General Surgeons [Provider Group]
[2023-04-19 11:16] LABS: COVID-19 Test Negative (Negative); IDNOW Serial# 08D9AD1C; IDNOW Serial# BCCEAD1C; Influenza A Negative (Negative); Influenza B2 Negative (Negative)
== END 2023-04-19 11:42 | disposition home or self-care (01) ==
PROVIDERS: Registered Nurse Emergency; Emergency Provider Emergency Medicine
DX: P83.81 Umbilical granuloma (principal); Z87.891 Personal history of nicotine dependence; Z11.52 Encounter for screening for COVID-19
CPT/HCPCS: 87070; 87205; 87502; 87635; 99283

== ENCOUNTER 2023-04-30 11:34 | Outpatient (AMB) | payer OTHER, SELFPAY ==
[2023-04-30 11:34] VITALS: BP 128/72; PULSE 92; O2SAT 99; BMI 39.9
--- NOTE | 2023-04-30 11:34 | MHC.PC.OV ---
Vital Signs 04/30/23 11:34 Height 6 ft 3 in Weight 319 lb BMI 39.9 BP 128/72 Blood Pressure Location Lt brachial Position Sitting Pulse 92 Pulse Source Pulse Oximeter Pulse Oximetry (%) 99 Oxygen Delivery Method Room Air Intake Visit Reasons: [facility] [place] - belly button infection Intake Note: Patient is here to follow-up after a visit the emergency department at [facility] on 04/19/2023 Potato Seed Cutter Required: No Allergies Seasonal Allergies Allergy (Intermediate, Verified 04/30/23 11:35) sneezing Tobacco use date assessed: 04/30/23 Dental Screening Dental Screen Date: 04/30/23 Did you have a dental visit in the last 12 months?: No Did you have a dental problem in the last 6 months where you did not have access to dental care?: No HPI HPI Comments History of Present Illness Details 28-year-old male presents for a follow-up visit. He was evaluated and treated at [facility] ED on 04/19/2023 for purulent discharge from a mass on his umbilicus. The mass was deemed likely umbilical granuloma. He was prescribed mupirocin ointment and recommended to follow-up with his PCP and general surgery for further evaluation and management. He was advised to return to the ED with signs and symptoms of infection. He reports intermittent pain round the the umbilicus especially with certain movements. He notes that the masses no longer present. However, he reports scant bloody discharge whenever he inserts a Q-tip to administer the antibiotic ointment. No fever, chills, body aches, fatigue, or weakness PFSH Medical History Asthma Surgical History (Updated 10/28/22 @ 12:39 by Viola Napoles MA) No pertinent past surgical history Family History Mother Asthma Hypertension Social History (Updated 01/01/23 @ 14:32 by Parul Natarajan LPN) Housing: House Patient Tobacco Use Status: Former Tobacco user Tobacco use type: Cigarette Years Smoked: smoked less than a year. e-Cigarette/Vaping Use: Former Use service: No Current occupational status: unemployed Cognitive needs: No Hearing needs: No Vision needs: Yes (Reoccuring styes) Questionnaire Thrive Questionnaire Date Thrive assessed: 05/19/22 AUDIT C Alcohol Use Questionnaire (AUDIT-C) 1. How often do you have a drink containing alcohol?: Never 3. How often do you have six or more drinks on one occasion?: Never Total Score: 0 NORMA-7 AMB Questionnaire NORMA-7 Date NORMA - 7 assessed: 10/28/22 Source: Developed by Drs. Bud Franks, Kylie Vivar, Bardley Catalan and colleagues, with an educational nehal from [employer]. Review of Systems Const Details: Const Denies chills, Denies fatigue, Denies fever(s), Denies headache(s) and Denies weakness ENT Denies dizziness and Denies headache(s) Card Denies chest pain, Denies lightheadedness, Denies dyspnea and Denies other (Palpitations) Resp Denies cough, Denies dyspnea, Denies wheezing and Denies other ( shortness of breath) GI Denies abdominal pain, Denies melena, Denies hematochezia, Denies change in bowel habits, Denies dyspepsia and Denies nausea Denies hematuria and Denies dysuria Musc Denies abnormal gait, Denies myalgias, Denies arthralgias, Denies numbness and Denies tingling Skin/Breast Reports as per HPI Neuro Denies abnormal gait, Denies dizziness, Denies headache(s), Denies memory loss, Denies numbness, Denies Sensory deficit (Neuro), Denies tingling and Denies weakness Psych Denies anxiety, Denies depression, Denies memory loss Endo Denies cold intolerance, Denies fatigue, Denies heat intolerance, Denies polydipsia and Denies polyuria Aller/Immun Denies wheezing Physical exam (Primary Care) Vital Signs: Last Vital Signs Pulse 92 04/30/23 11:34 BP 128/72 04/30/23 11:34 Pulse Ox 99 04/30/23 11:34 Oxygen Delivery Method Room Air 04/30/23 11:34 BMI result Body Mass Index 39.9 Tobacco/Smoking Status: Tobacco use Status Tobacco use date assessed 04/30/23 04/30/23 11:41 Patient Tobacco Use Status Former Tobacco user 04/30/23 11:41 Tobacco use type Cigarette 04/30/23 11:41 e-Cigarette/Vaping Use Former Use 04/30/23 11:41 Thrive Assessment: Date of Thrive Assessment Date Thrive assessed 05/19/22 04/30/23 11:41 Const Other: General: no acute distress and well developed Nutritional Appearance: well nourished Orientation/consciousness: patient oriented x3 [facility] Head: Yes normocephalic and Yes atraumatic Eyes General: appearance normal, both eyes and all related structures Pupils: Equal, round and reactive pupils present EOM: EOMs intact bilaterally Resp Effort & Inspection: normal respiratory effort Auscultation: clear to auscultation bilaterally Cardio Rate: regular rate Rhythm: regular rhythm Heart sounds: S1 normal heart sound present, S2 normal heart sound present, no gallops, no murmurs and no rubs GI Palpation (GI): No Abdominal aortic bruit present, Soft to palpation, nontender, No hepatosplenomegaly present and No Rebound tenderness present Auscultation: normal bowel sounds General: Yes no CVA tenderness Back/Spine/Pelvis Back: no CVA tenderness Cervical Spine: cervical ROM normal and No Cervical spine tenderness Thoracic/Lumbar Spine: thoraco-lumbar ROM normal, No pain with thoraco-lumbar ROM, No thoracic spinal tenderness and No lumbar spinal tenderness Extrem General: Yes normal to inspection, No edema and No calf tenderness Skin General: warm and dry. Normal skin color. Normal skin turgor Lesions: no lesion or abdominal mass present Rashes: no rashes Trauma: no lacerations or abrasions Wounds: no wounds or discharge Nails: normal Neuro General: patient oriented x3, gait normal and no focal neuro deficit Cranial nerves: Yes Equal, round and reactive pupils present Cognition (Neuro): normal cognition Gait exam (Neuro): Normal gait present Sensory Exam: No Sensory deficit (Neuro) Psych Appearance: grossly normal Affect: normal affect Attitude: cooperative Thought process: Normal thought process present Assessment and Plan Assessment & Plan (1) Umbilical mass: Code(s): R19.09 - Other intra-abdominal and pelvic swelling, mass and lump Plan: Mass is no longer present No discharge or pain with/without palpation Reports scant bloody discharge whenever he inserts a Q-tip to administer the antibiotic ointment Also reports intermittent pain around the umbilicus especially with certain movements Continue to administer may proceed as prescribed Warm/cold compresses encouraged May take Tylenol ibuprofen for pain, fever, or discomfort Referred to general surgery Return to the ED with signs and symptoms of infection Follow-up with PCP for anxiety and depression or return sooner with symptoms or concerns Verbalized understanding and agreed with treatment plan Orders: Referrals General Surgery Referral R19.09 - Other intra-abdominal and pelvic swelling, mass and lump Coding Level of Care Code Est Pt Level 3 (21060) Diagnoses Umbilical mass R19.09
== END 2023-04-30 11:58 | disposition home or self-care (01) ==
PROVIDERS: Visit Provider Nurse Practitioner Family
DX: R19.09 Other intra-abdominal and pelvic swelling, mass and lump (principal)
CPT/HCPCS: 99213

== ENCOUNTER 2023-05-25 12:38 | Outpatient (AMB) | payer OTHER, SELFPAY ==
--- NOTE | 2023-05-25 12:44 | A.OFFVIS_ITS ---
Intake Vital Signs 05/25/23 12:47 Height 6 ft 3 in Weight 316 lb BMI 39.5 BP 139/80 Blood Pressure Location Rt brachial Position Sitting Pulse 108 H Intake Visit Reasons: Discharge from umbilicus Intake Note: Patient referred by PCP Dr. Grimes for discharge from umbilicus. Discharge has been present since mass ? Patient c/o: scant discharge noted after inserting Q-tip to apply abx ointment, reports postprandial abdominal pain, reports intermittent abdominal pain, reports oozing has stopped, reports noticed a lump on the umbilicus Parimutuel Ticket Seller Required: No Accompanied by: Self / Same As Patient Allergies Seasonal Allergies Allergy (Intermediate, Verified 05/25/23 12:49) sneezing Medication List - Last Reconciled 05/25/23 by Humberto Mejia MD albuterol sulfate 90 mcg/actuation (ProAir HFA) 2 puffs inhalation Q6H PRN budesonide-formoterol 80-4.5 mcg/actuation (Symbicort) 2 puffs inhalation Q12H cetirizine 10 mg PO DAILY cholecalciferol (vitamin D3) 25 mcg PO DAILY 90 days fluticasone propionate 50 mcg/actuation (Flonase Allergy Relief) 1 spray intranasal BID mupirocin 2% 1 appl topical TID 10 days sertraline 25 mg PO DAILY 30 days HPI HPI Comments History of Present Illness Details Patient presents with a several year history of spontaneous umbilical drainage. Drainage has been a variety of yellow, red colors. Denies any trauma to the area. He has been treated various outpatient clinics for corresponding infections which will resolve with antibiotics and local wound care. Because of the persistence of this time several years, he presents here for further evaluation. Patient has no other GI issues or complaints. Chart was reviewed patient evaluated [facility] Medical History (Updated 04/30/23 @ 12:02 by Brittney Grimes CNP) Asthma Surgical History (Updated 05/25/23 @ 13:10 by Humberto Mejia MD) History of shoulder surgery No pertinent past surgical history Family History (Updated 05/25/23 @ 12:45 by HERNANDEZ Emery) Mother Asthma Hypertension Social History Housing: House Patient Tobacco Use Status: Former Tobacco user Tobacco use type: Cigarette Years Smoked: smoked less than a year. e-Cigarette/Vaping Use: Former Use service: No Current occupational status: unemployed Cognitive needs: No Hearing needs: No Vision needs: Yes (Reoccuring styes) Physical Exam Vital Signs: Last Vital Signs Pulse 108 H 05/25/23 12:47 BP 139/80 05/25/23 12:47 BMI result Body Mass Index 39.5 Const Other: Very pleasant corpulent male GI Other: Abdomen corpulent. Patient was examined both supine and standing with Valsalva no umbilical hernia demonstrated. No obvious discharge at this time. 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 Current plan is to arrange for CT scan of the abdomen pelvis and direct further therapy based on these results. All questions answered. Patient will see me after the scan. Orders: Orders CT abdomen pelvis wo/w IV con Today Q64.4 - Malformation of urachus Coding Level of Care Code New Pt Level 4 (08662) Diagnoses Congenital urachal cyst Q64.4
[2023-05-25 12:47] VITALS: BP 139/80; PULSE 108; BMI 39.5
== END 2023-05-25 12:58 | disposition home or self-care (01) ==
PROVIDERS: Visit Provider Surgery
DX: Q64.4 Malformation of urachus (principal)
CPT/HCPCS: 99204

== ENCOUNTER → 2023-05-25 12:38 | Outpatient (BNVA) | payer OTHER, SELFPAY | PROVIDERS: Visit Provider Surgery | DX: Q64.4 Malformation of urachus (principal) | CPT/HCPCS: 99202 ==

== ENCOUNTER 2023-06-02 14:14 | Outpatient (REF) | payer OTHER, SELFPAY ==
--- NOTE | ~2023-06-02 | CT_ITS ---
EXAMINATION: CT ABDOMEN AND PELVIS WITHOUT AND WITH CONTRAST CLINICAL INFORMATION: Query bladder malformation COMPARISON: None available. TECHNIQUE: Multidetector volumetric imaging was performed of the abdomen and pelvis before and after the IV administration of 85 mL of Omnipaque 300 intravenous contrast. Sagittal and coronal reformatted images were obtained on the technologist's workstation. Delayed images through the bladder are obtained. This CT examination was performed using dose optimization techniques as appropriate, variously including the following: *Automated exposure control *Adjustment of mA and/or kV according to patient size (this includes techniques or standardized protocols for targeted exams where dose is matched to indication/reason for exam; i.e. extremities or head) *Use of iterative reconstruction technique DLP: 2527 mGy-cm FINDINGS: LUNG BASES: The visualized lung bases are unremarkable. LIVER, GALLBLADDER, AND BILIARY TREE: The liver is normal in size, shape, and attenuation. No focal hepatic lesion or biliary ductal dilatation is present. The gallbladder is unremarkable with no evidence of radiopaque gallstones, gallbladder wall thickening, or obvious pericholecystic inflammatory changes. PANCREAS: Unremarkable SPLEEN: Unremarkable ADRENAL GLANDS: Unremarkable KIDNEYS AND URETERS: The kidneys are normal in size, shape, and attenuation. No hydronephrosis, hydroureter, or calculi seen. No perinephric stranding. BLADDER: 10 mm soft tissue nodule closely opposed the superior dome of the bladder with slight cephalad extension. This does not extend to the umbilicus. This may reflect a small meniscal remnant. (). GASTROINTESTINAL TRACT: The small and large bowel are unremarkable. The appendix is unremarkable. ABDOMINAL WALL: No significant hernia is appreciated. LYMPH NODES: Normal VASCULAR: Unremarkable PELVIC VISCERA: Unremarkable OSSEOUS STRUCTURES: Disc space narrowing and minor degenerative change at the lumbosacral junction. CT/CT abdomen pelvis wo/w IV con IMPRESSION: Small urachal remnant along the superior margin of the bladder. Fleischner guidelines were followed.
[2023-06-02] MEDS: iohexoL 350 MG/ML 100 ML INFUS..BTL 85 ML IV (15:20)
== END 2023-06-02 14:15 | disposition home or self-care (01) ==
LOC: HO.CT 14:14
PROVIDERS: PCP Nurse Practitioner Family; Visit Provider Surgery
DX: Q64.4 Malformation of urachus (principal)
CPT/HCPCS: 74178; Q9967

== ENCOUNTER 2023-06-09 13:29 | Outpatient (AMB) | payer OTHER, SELFPAY ==
--- NOTE | 2023-06-09 13:31 | A.OFFVIS_ITS ---
Intake Vital Signs 06/09/23 13:35 Height 6 ft 3 in Weight 318 lb BMI 39.7 BP 136/70 Blood Pressure Location Rt brachial Position Sitting Pulse 86 Intake Visit Reasons: Ct-Scan results Intake Note: Patient here to discuss Abd/pelvis on 06-02-23 results. Patient c/o: umbilical discharge. Security Controls Assessor Required: No Accompanied by: Self / Same As Patient Allergies Seasonal Allergies Allergy (Intermediate, Verified 06/09/23 13:35) sneezing HPI HPI Comments History of Present Illness Details Patient presents for follow-up status post CT scan to rule out urachal cyst. Patient has a small remnant but nothing obvious in the umbilicus leading to his symptoms. At present, the area is quiescent with no drainage. PFSH Medical History Asthma Surgical History History of shoulder surgery No pertinent past surgical history Family History Mother Asthma Hypertension Social History Housing: House Patient Tobacco Use Status: Former Tobacco user Tobacco use type: Cigarette Years Smoked: smoked less than a year. e-Cigarette/Vaping Use: Former Use service: No Current occupational status: unemployed Cognitive needs: No Hearing needs: No Vision needs: Yes (Reoccuring styes) Physical Exam Vital Signs: Last Vital Signs Pulse 86 06/09/23 13:35 BP 136/70 06/09/23 13:35 BMI result Body Mass Index 39.7 GI Other: Abdomen corpulent, soft, no drainage at present. 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 Patient is operative for the former. Should the drainage persistent become more symptomatic, he will contact me. Meantime he has been given local instructions, and will follow-up p.r.n.. All questions answered. Coding Level of Care Code Est Pt Level 4 (56283) Diagnoses Congenital urachal cyst Q64.4 Umbilical mass R19.09
[2023-06-09 13:35] VITALS: BP 136/70; PULSE 86; BMI 39.7
== END 2023-06-09 13:44 | disposition home or self-care (01) ==
PROVIDERS: PCP Nurse Practitioner Family; Visit Provider Surgery
DX: Q64.4 Malformation of urachus (principal); R19.09 Other intra-abdominal and pelvic swelling, mass and lump
CPT/HCPCS: 99214

== ENCOUNTER → 2023-06-09 13:29 | Outpatient (BNVA) | payer OTHER, SELFPAY | PROVIDERS: PCP Nurse Practitioner Family; Visit Provider Surgery | DX: Q64.4 Malformation of urachus (principal); R19.09 Other intra-abdominal and pelvic swelling, mass and lump | CPT/HCPCS: 99212 ==

== ENCOUNTER 2024-01-04 10:45 | Outpatient (AMB) | payer OTHER, SELFPAY ==
--- NOTE | 2024-01-04 10:50 | A.OFFPC_ITS ---
Vital Signs 01/04/24 10:58 Height 6 ft 3 in Weight 309 lb BMI 38.6 BP 116/80 Blood Pressure Location Rt brachial Position Sitting Respiration 16 Pulse 88 Pulse Source Pulse Oximeter Temp 97.7 F Temp Source Oral Pulse Oximetry (%) 98 Oxygen Delivery Method Room Air Intake Visit Reasons: Stomach, sleeping problems, havented been in Intake Note: patient here c/o stomach and sleeping issues. [employer] Required: No Allergies Seasonal Allergies Allergy (Intermediate, Verified 01/04/24 10:52) sneezing Tobacco use date assessed: 01/04/24 Dental Screening Dental Screen Date: 01/04/24 Did you have a dental visit in the last 12 months?: No Did you have a dental problem in the last 6 months where you did not have access to dental care?: No Was dental information given to patient?: Patient declined HPI HPI Comments History of Present Illness Details 28-year-old male presents with complaint s of ongoing intermittent red drainage from the inside of his umbilicus. He notes that the area is usually irritated with cramping sensation. He notes signs and symptoms every other month. No acute signs and symptoms at this time. He also reports difficulty falling and staying asleep. He sleeps an average of 4 hours nightly. He has history of anxiety and depression. He stopped taking sertraline. He reports worsening anxiety with psychotropic medications. [facility] Medical History Asthma Surgical History History of shoulder surgery No pertinent past surgical history Family History Mother Asthma Hypertension Social History Housing: House Patient Tobacco Use Status: Former Tobacco user Tobacco use type: Cigarette Years Smoked: smoked less than a year. e-Cigarette/Vaping Use: Former Use service: No Current occupational status: unemployed Cognitive needs: No Hearing needs: No Vision needs: Yes (Reoccuring styes) Questionnaire PHQ-9 Over the last 2 weeks, how often have you been bothered by any of the following problems? 1. Little interest or pleasure in doing things: more than half the days 2. Feeling down, depressed, or hopeless: nearly every day 3. Trouble falling or staying asleep, or sleeping too much: nearly every day 4. Feeling tired or having little energy: more than half the days 5. Poor appetite or overeating: not at all 6. Feeling bad about yourself - or that you are a failure or have let yourself or your family down: more than half the days 7. Trouble concentrating on things, such as reading the newspaper or watching television: several days 8. Moving or speaking so slowly that other people could have noticed. Or the opposite - being so fidgety or restless that you have been moving around a lot more than usual: more than half the days 9. Thoughts that you would be better off or of hurting yourself in some way: more than half the days Total score: 17 Depression Screening Interpretation: Positive Depression Screening Follow-up: Existing condition Depression Screening Done: Yes 87666 - PHQ-9 Billing: Yes Source: Developed by Drs. Bud Franks, Kylie Vivar, Bradley Catalan and colleagues, with an educational nehal from [employer]. Thrive Questionnaire Date Thrive assessed: 05/19/22 AUDIT C Alcohol Use Questionnaire (AUDIT-C) 1. How often do you have a drink containing alcohol?: Never Total Score: 0 Score Reviewed/Action Taken: Yes NORMA-7 AMB Questionnaire NORMA-7 Date NORMA - 7 assessed: 01/04/24 Feeling nervous, anxious, or on edge: 2 = More than half the days Not being able to stop or control worryin = More than half the days Worrying too much about different things: 2 = More than half the days Trouble relaxin = More than half the days Being so restless that it is hard to sit still: 0 = Not at all Becoming easily annoyed or irritable: 2 = More than half the days Feeling afraid as if something awful might happen: 1 = Several days Total NORMA-7 score (0-4 normal; 5-9 mild; 10-14 moderate; 15-21 severe): 11 Source: Developed by Drs. Bud Franks, Kylie Vivar, Bradley Catalan and colleagues, with an educational nehal from [employer]. NORMA-7 Assessment Billing NORMA-7 Assessment Tool: NORMA-7 Assessment 01470 ACT Questionnaire In the past 4 weeks, how much of the time did your asthma keep you from getting as much done at work, school or at home?: None of the time During the past 4 weeks, how often have you had shortness of breath?: 1-2 times a week During the past 4 weeks, how often did your asthma symptoms wake you up at night or earlier than usual in the morning?: Once a week During the past 4 weeks, how often have you had to use your rescue inhaler or nebulizer medication?: Not at all How would you rate your asthma control during the past 4 weeks?: Well controlled Score: 21 Review of Systems Const Details: Const Denies chills, Denies fatigue, Denies fever(s), Denies headache(s) and Denies weakness ENT Denies dizziness and Denies headache(s) Card Denies chest pain, Denies lightheadedness, Denies dyspnea and Denies other ( Palpitations) Resp Denies cough, Denies dyspnea, Denies wheezing and Denies other ( shortness of breath) GI Denies abdominal pain, Denies melena, Denies hematochezia, Denies change in bowel habits, Denies dyspepsia and Denies nausea Denies hematuria and Denies dysuria Musc Denies abnormal gait, Denies myalgias, Denies arthralgias, Denies numbness and Denies tingling Skin/Breast Denies rash, Denies unusual bruising and Denies wounds Neuro Denies abnormal gait, Denies dizziness, Denies headache(s), Denies memory loss, Denies numbness, Denies Sensory deficit (Neuro), Denies tingling and Denies weakness Psych Reports anxiety, Reports depression, Denies memory loss Endo Denies cold intolerance, Denies fatigue, Denies heat intolerance, Denies polydipsia and Denies polyuria Aller/Immun Denies wheezing Physical exam (Primary Care) Vital Signs: Last Vital Signs Temp 97.7 F 01/04/24 10:58 Pulse 88 01/04/24 10:58 Resp 16 01/04/24 10:58 BP 116/80 01/04/24 10:58 Pulse Ox 98 01/04/24 10:58 Oxygen Delivery Method Room Air 01/04/24 10:58 BMI result Body Mass Index 38.6 Tobacco/Smoking Status: Tobacco use Status Tobacco use date assessed 01/04/24 01/04/24 10:55 Patient Tobacco Use Status Former Tobacco user 01/04/24 10:52 Tobacco use type Cigarette 01/04/24 10:52 e-Cigarette/Vaping Use Former Use 01/04/24 10:52 Depression Screening Interpretation: Positive Depression Screening Follow-up: Existing condition Thrive Assessment: Date of Thrive Assessment Date Thrive assessed 05/19/22 01/04/24 10:52 Const Other: General: no acute distress and well developed Nutritional Appearance: well nourished Orientation/consciousness: patient oriented x3 HENMT Head: Yes normocephalic and Yes atraumatic Eyes General: appearance normal, both eyes and all related structures Pupils: Equal, round and reactive pupils present EOM: EOMs intact bilaterally Resp Effort & Inspection: normal respiratory effort Auscultation: clear to auscultation bilaterally Cardio Rate: regular rate Rhythm: regular rhythm Heart sounds: S1 normal heart sound present, S2 normal heart sound present, no gallops, no murmurs and no rubs GI Palpation (GI): No Abdominal aortic bruit present, Soft to palpation, nontender, No hepatosplenomegaly present and No Rebound tenderness present Auscultation: normal bowel sounds General: Yes no CVA tenderness Back/Spine/Pelvis Back: no CVA tenderness Cervical Spine: cervical ROM normal and No Cervical spine tenderness Thoracic/Lumbar Spine: thoraco-lumbar ROM normal, No pain with thoraco-lumbar ROM, No thoracic spinal tenderness and No lumbar spinal tenderness Extrem General: Yes normal to inspection, No edema and No calf tenderness Skin General: warm and dry. Normal skin color. Normal skin turgor Neuro General: patient oriented x3, gait normal and no focal neuro deficit Cranial nerves: Yes Equal, round and reactive pupils present Cognition (Neuro): normal cognition Gait exam (Neuro): Normal gait present Sensory Exam: No Sensory deficit (Neuro) Psych Appearance: grossly normal Affect: normal affect Attitude: cooperative Thought process: Normal thought process present Assessment and Plan Assessment & Plan (1) Insomnia: Code(s): G47.00 - Insomnia, unspecified Plan: Reports difficulty falling and staying asleep He has anxiety and depression but does not take medication. He stop taking sertraline. He notes that psychotropic medications worsen his symptoms Will trial hydroxyzine 50 mg every night for sleep. Advised to take as prescribed Encouraged to get lab work done a few days before his next visit Follow-up for an extended physical exam or return for worsening or new symptoms Verbalized understanding and agreed with the treatment plan (2) Anxiety and depression: Code(s): F41.9 - Anxiety disorder, unspecified; F32.A - Depression, unspecified Plan: PHQ-9 and NORMA-7 scores revealed moderately severe depression and moderate anxiety respectively He notes passive SI, no active SI or HI His anxiety and depressive symptoms may be contributing to his insomnia He declines psychotropic medications as this time Encouraged to take hydroxyzine as prescribed for sleep Routine exercise encouraged Follow-up with worsening or new symptoms Verbalized understanding and agreed with the treatment plan (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 No current signs and symptoms Followed by [facility] [place] General surgery and was instructed to follow-up with signs and symptoms Patient advised to follow-up with [facility] [place] general surgery as needed Verbalized understanding and agreed with the plan Orders: Orders Comprehensive [place]. Panel Fast Today Z00.00 - Encounter for general adult medical examination without abnormal findings UA CC w/rflx Micro + Cult Today Z00.00 - Encounter for general adult medical examination without abnormal findings Complete Blood Count Auto Diff Today Z00.00 - Encounter for general adult medical examination without abnormal findings Lipid Panel Today Z00.00 - Encounter for general adult medical examination without abnormal findings TSH reflex Free T4 Today Z00.00 - Encounter for general adult medical examination without abnormal findings Medications: New hydroxyzine HCl 50 mg PO BEDTIME 30 days PRN 30 tabs 3RF insomnia Coding Level of Care Code Est Pt Level 4 (61428) Diagnoses Insomnia G47.00 Anxiety and depression F41.9; F32.A Congenital urachal cyst Q64.4 Additional Codes NORMA-7 Assessment Billing - NORMA-7 Assessment Tool: NORMA-7 Assessment 11431 ([id number])
[2024-01-04 10:58] VITALS: BP 116/80; PULSE 88; RESP 16; TEMP 36.5; O2SAT 98; BMI 38.6
== END 2024-01-04 11:37 | disposition home or self-care (01) ==
PROVIDERS: PCP Nurse Practitioner Family; Visit Provider Nurse Practitioner Family
DX: G47.00 Insomnia, unspecified (principal); F41.9 Anxiety disorder, unspecified; F32.A Depression, unspecified; Q64.4 Malformation of urachus

== ENCOUNTER → 2024-01-04 10:45 | Outpatient (BNVA) | payer OTHER, SELFPAY | PROVIDERS: PCP Nurse Practitioner Family; Visit Provider Nurse Practitioner Family | DX: F41.9 Anxiety disorder, unspecified (principal); F32.A Depression, unspecified; Q64.4 Malformation of urachus; G47.00 Insomnia, unspecified | CPT/HCPCS: 96127; 99212 ==